=== PATIENT | male | born 1975 | race Caucasian/White ===

== ENCOUNTER 2017-09-02 21:11 | Emergency (ER) | payer BC ==
[2017-09-02 21:22] VITALS: BP 115/67; BMI 29.2
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
== END 2017-09-03 00:20 | disposition home or self-care (01) ==
LOC: ER 21:22
DX: T18.0XXA Foreign body in mouth, initial encounter (principal)
CPT/HCPCS: 70110; 99282; 99283